=== PATIENT | male | born 1940 | race Caucasian/White ===

== ENCOUNTER 2016-12-22 18:07 | Emergency (ER) | payer MEDICARE ==
[2016-12-22 18:28] VITALS: BP 168/96; PULSE 88; RESP 20; TEMP 98.4
[2016-12-22] MEDS ORDERED: DIPH,PERTUS(ACELL)TETVAC-LF 0.5 ML VIAL IM ONE (18:32)
--- NOTE | 2016-12-22 18:38 | ED ---
Wound/Laceration HPI - General Chief Complaint: Wound/Laceration Stated Complaint: Finger Laceration Time Seen by Provider: 12/22/16 18:30 Source: patient, RN notes reviewed Mode of arrival: ambulatory Limitations: no limitations - History of Present Illness Initial Comments: 76-year-old male presents to the emergency Department chief complaint of left finger laceration. Patient states he cut it on a table saw today. Patient states she's having a burning type pain. Patient states it is minor. Patient denies any other injury from the incident. Patient states that he has never had anything like this before. Patient denies any fever chills cough cold runny nose with this. Patient states he was concerned due to his symptoms so he thought that he should be evaluated.Patient denies any recent fever, chills, shortness of breath, chest pain, back pain, abdominal pain, nausea vomiting, numbness or tingling, dysuria or hematuria, constipation or diarrhea, headaches or visual changes, or any other current symptoms. - Related Data Previous Rx's Medication Instructions Recorded Cephalexin [Keflex] 500 mg PO Q6HR #40 cap 12/22/16 Allergies Allergy/AdvReac Type Severity Reaction Status Date / Time No Known Allergies Allergy Verified 12/22/16 18:28 Review of Systems ROS Statement: Those systems with pertinent positive or pertinent negative responses have been documented in the HPI. ROS Other: All systems not noted in ROS Statement are negative. Past Medical History Past Medical History: No Reported History History of Any Multi-Drug Resistant Organisms: None Reported Past Surgical History: Orthopedic Surgery Past Psychological History: No Psychological Hx Reported Smoking Status: Never smoker Past Alcohol Use History: Occasional Past Drug Use History: None Reported General Exam - General Exam Comments Initial Comments: General: The patient is awake and alert, in no distress, and does not appear acutely ill. Neck: The neck is supple, there is no tenderness. Cardiovascular: There is a regular rate and rhythm. No murmur, rub or gallop is appreciated. Respiratory: Lungs are clear to auscultation, respirations are non-labored, breath sounds are equal. No wheezes, stridor, rales, or rhonchi. Musculoskeletal: sensation intact with 2+ pulses at the left upper extremity. Full range of motion of the left finger. Patient does appear to have 2 laceration lacerations. Less than 2 capillary refill. Neurological: CN II-XII intact, There are no obvious motor or sensory deficits. Coordination appears grossly intact. Speech is normal. Skin: Skin is warm and dry and no rashes or lesions are noted. Psychiatric: Normal mood and affect. Limitations: no limitations Course Vital Signs 12/22/16 18:25 Temperature 98.4 F Pulse Rate 88 Respiratory 20 Rate Blood Pressure 168/96 O2 Sat by Pulse 97 Oximetry Procedures - Procedures Initial comment: The skin was anesthetized with 1% lidocaine. The laceration was then cleansed with Betadine and irrigated with normal saline. The wound was inspected. No foreign body was noted in the wound. A total of 4 skin sutures were placed utilizing 5-0 nylon to a 4 cm laceration to the left index finger The skin was anesthetized with 1% lidocaine. The laceration was then cleansed with Betadine and irrigated with normal saline. The wound was inspected, and there was no evidence of injury to deep structures. No foreign body was noted in the wound. A total of 2 skin sutures were placed utilizing I will nylon to a 2 cm laceration to the PIP joint of the left index finger Medical Decision Making - Medical Decision Making 76-year-old presents emergency Department chief complaint of left index finger laceration.at this time patient's x-ray is reviewed. We did discuss that this has a high risk of infection. We discussed we'll plan and actually did discuss close follow-up with orthopedic we did discuss is an open fracture. Patient was loosely approximated due to risk of infection. Patient family are in agreement plan all questions have been answered. Disposition Clinical Impression: Laceration of left index finger, Open fracture of finger of left hand Disposition: HOME SELF-CARE Condition: Stable Instructions: Laceration (ED), Care For Your Stitches (ED) Additional Instructions: Please use medication as discussed. Please follow up with family doctor if symptoms have not improved over the next two days. Please return to the emergency room if your symptoms increase or worsen or for any other concerns. Follow-up with hand surgeon in the morning. Please return to the emergency room in 8-10 days to have sutures removed. Please leave wound covered for the first 24-48 hours and then leave open to air after that time. Please use clean soap and water to clean the suture area to prevent scabbing over the top of your sutures. Please watch for any signs of infection which may include but not limited to increased pain, swelling, redness , fever or chills. Please return to the emergency room if any signs of infection do occur. Please return to the emergency room for any other concerns or complications. Prescriptions: Cephalexin [Keflex] 500 mg PO Q6HR #40 cap Referrals: Reji Lopez DO [Doctor of Osteopathic Medicine] - 1-2 days Time of Disposition: 19:39
--- NOTE | 2016-12-22 19:03 | XR ---
Second digit left hand HISTORY: Trauma and pain 3 views of the second digit of the left hand Posttraumatic changes are noted to the distal phalanx of the second digit of the left hand, there is fragmentation present, soft tissue metallic densities are present with soft tissue injury. Posttrauma tic change extends into the distal interphalangeal joint. Alignment is maintained, there is soft tiss ue swelling. IMPRESSION: Findings compatible with patient's history of trauma.
== END 2016-12-22 20:14 | disposition home or self-care (01) ==
LOC: EC 18:07
DX: S62.631B Displaced fracture of distal phalanx of left index finger, initial encounter for open fracture (principal); Z23 Encounter for immunization; W27.0XXA Contact with workbench tool, initial encounter
CPT/HCPCS: 12002; 90471; 90715; 99283

== ENCOUNTER 2023-02-12 21:56 | Emergency (ER) | payer MEDICARE ==
[2023-02-12] MEDS ORDERED: PANTOPRAZOLE 40 MG/10 ML VIAL IVP STA (22:18)
[2023-02-12] MEDS ORDERED: ONDANSETRON 4 MG/2 ML VIAL IVP STA (22:18)
[2023-02-12] MEDS ORDERED: SODIUM CHLORIDE 0.9% 1,000 ML IV STA (22:18)
--- NOTE | 2023-02-12 22:19 | ED ---
Chest Pain HPI - General Chief Complaint: Chest Pain Stated Complaint: chest pain Time Seen by Provider: 02/12/23 22:17 Source: patient, RN notes reviewed, old records reviewed Mode of arrival: ambulatory Limitations: no limitations - History of Present Illness Initial Comments: This is a 82-year-old male DF today. Presents today for evaluation regards to chest pain. 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 Patient occasionally gets twinges of chest pain was at a family dinner today he noticed to have chest pain during dinner and family states he nearly passed out, he did not loose tone but was difficult to get this respond. They kept having to say his name, when he didn't come out of it was little clammy a little pale but his symptoms are resolved on arrival to the emergency department MD Complaint: chest pain, other (Near syncope) -: hour(s) Onset: during rest Pain Location: substernal Pain Radiation: none Severity: moderate Severity scale (1-10): 5 Quality: tightness, heaviness Consistency: constant, now resolved Improves With: nothing Worsens With: nothing Other Symptoms: syncope, palpitations Treatments Prior to Arrival: none - Related Data Home Medications Medication Instructions Recorded Confirmed Aspirin EC [Ecotrin Low Dose] 81 mg PO DAILY 02/12/23 02/12/23 Clopidogrel [Plavix] 75 mg PO DAILY 02/12/23 02/12/23 Metoprolol Succinate (ER) [Toprol 25 mg PO DAILY 02/12/23 02/12/23 Xl] Rosuvastatin [Crestor] 10 mg PO DAILY 02/12/23 02/12/23 Trospium Chloride [Sanctura XR] 60 mg PO DAILY 02/12/23 02/12/23 Allergies Allergy/AdvReac Type Severity Reaction Status Date / Time No Known Allergies Allergy Verified 02/12/23 23:37 Review of Systems ROS Statement: Those systems with pertinent positive or pertinent negative responses have been documented in the HPI. ROS Other: All systems not noted in ROS Statement are negative. EKG Findings - EKG Comments: EKG Findings:: It is sinus bradycardia 57 MI 127 QRS 168 QTc 479 Past Medical History Past Medical History: Unable to Obtain History of Any Multi-Drug Resistant Organisms: None Reported Past Surgical History: Heart Catheterization With Stent, Orthopedic Surgery Additional Past Surgical History / Comment(s): CABG Past Psychological History: No Psychological Hx Reported Smoking Status: Former smoker Past Alcohol Use History: Occasional Past Drug Use History: None Reported General Exam Limitations: no limitations General appearance: alert, in no apparent distress, anxious Head exam: Present: atraumatic, normocephalic, normal inspection Eye exam: Present: normal appearance, PERRL, EOMI. Absent: scleral icterus, conjunctival injection, periorbital swelling ENT exam: Present: normal exam, mucous membranes moist Neck exam: Present: normal inspection. Absent: tenderness, meningismus, lymphadenopathy Respiratory exam: Present: normal lung sounds bilaterally. Absent: respiratory distress, wheezes, rales, rhonchi, stridor Cardiovascular Exam: Present: regular rate, normal rhythm, normal heart sounds. Absent: systolic murmur, diastolic murmur, rubs, gallop, clicks GI/Abdominal exam: Present: soft, normal bowel sounds. Absent: distended, tenderness, guarding, rebound, rigid Extremities exam: Present: normal inspection, full ROM, normal capillary refill. Absent: tenderness, pedal edema, joint swelling, calf tenderness Back exam: Present: normal inspection Neurological exam: Present: alert, oriented X3, CN II-XII intact Psychiatric exam: Present: normal affect, normal mood Skin exam: Present: warm, dry, intact, normal color. Absent: rash Course Vital Signs 02/12/23 02/12/23 02/13/23 22:07 22:29 00:13 Temperature 97.7 F Pulse Rate 67 57 L 64 Respiratory 18 16 18 Rate Blood Pressure 144/78 137/75 138/79 O2 Sat by Pulse 99 100 95 Oximetry 02/13/23 02:00 Temperature 98.1 F Pulse Rate 65 Respiratory 18 Rate Blood Pressure 135/77 O2 Sat by Pulse 98 Oximetry - Reevaluation(s) Reevaluation #1: 02/12/23 23:16 Medical records reviewed Reevaluation #2: 02/13/23 02:42 Patient's chest pain remains resolved Reevaluation #3: 02/13/23 02:42 Patient informed results and questions answered Reevaluation #4: 02/12/23 22:50 Was pt. sent in by a medical professional or institution (, PA, REGIONAL TRAINER, urgent care, hospital, or fdc...) When possible be specific @ -no Did you speak to anyone other than the patient for history (EMS, parent, family, police, friend...)? What history was obtained from this source @ -no Did you review nursing and triage notes (agree or disagree)? Why? @ -agree Are old charts reviewed (outside hosp., previous admission, EMS record, old EKG, old radiological studies, urgent care reports/EKG's, fdc records)? Report findings @ -yes Differential Diagnosis (chest pain, altered mental status, abdominal pain women, abdominal pain men, vaginal bleeding, weakness, fever, dyspnea, syncope, headache, dizziness, GI bleed, back pain, seizure, CVA, palpatations, mental health, musculoskeletal)? @ -prior EKG interpreted by me (3pts min.). @ -yes X-rays interpreted by me (1pt min.). @ -no CT interpreted by me (1pt min.). @ -no U/S interpreted by me (1pt. min.). @ -no What testing was considered but not performed or refused? (CT, X-rays, U/S, labs)? Why? @ -none What meds were considered but not given or refused? Why? @ -none Did you discuss the management of the patient with other professionals (professionals i.e. , PA, REGIONAL TRAINER, lab, RT, psych nurse, rn social services, landscape horticulture instructor, teacher, toxics program officer, rn case management)? Give summary @ -no Was smoking cessation discussed for >3mins.? @ -no Was critical care preformed (if so, how long)? @ -no Were there social determinants of health that impacted care today? How? (Homelessness, low income, unemployed, alcoholism, drug addiction, transportation, low edu. Level, literacy, decrease access to med. care, custodial, rehab)? @ -none Was there de-escalation of care discussed even if they declined (Discuss DNR or withdrawal of care, Hospice)? DNR status @ -no What co-morbidities impacted this encounter? (DM, HTN, Smoking, COPD, CAD, Cancer, CVA, ARF, Chemo, Hep., AIDS, mental health diagnosis, sleep apnea, morbid obesity)? @ -none Was patient admitted / discharged? Hospital course, mention meds given and route, prescriptions, significant lab abnormalities, going to OR and other pertinent info. @ - 82 male to the emergency department for evaluation. Patient has history of coronary artery disease and coming in for evaluation of chest pain and near syncopal event prior to arrival. Symptoms resolved upon arrival feels well throughout ER stay can be discharged home Discharge Undiagnosed new problem with uncertain prognosis? @ -no Drug Therapy requiring intensive monitoring for toxicity (Heparin, Nitro, Insulin, Cardizem)? @ -no Were any procedures done? @ -no Diagnosis/symptom? @ -Chest pain Acute, or Chronic, or Acute on Chronic? @ -Acute Uncomplicated (without systemic symptoms) or Complicated (systemic symptoms)? @ -Complicated Side effects of treatment? @ -no Exacerbation, Progression, or Severe Exacerbation? @ -exacerbation Poses a threat to life or bodily function? How? (Chest pain, USA, PA, pneumonia, PE, COPD, DKA, ARF, appy, cholecystitis, CVA, Diverticulitis, Homicidal, Suicidal, threat to staff... and all critical care pts) @ -yes Reevaluation #5: 02/13/23 02:42 Differential Chest Pain: Stable Angina, Unstable Angina, STEMI, NSTEMI Aortic Dissection, Pneumothorax, Musculoskeletal, Esophageal Spasm GERD, Cholecystitis, Pancreatitis, Zoster, this is not meant to be an all-inclusive list. Differential Syncope: Valvular disease, hypertrophic cardiomyopathy, pulmonary embolism, tamponade, tachycardia, bradycardia, PA, hypovolemia, hemorrhage, dissection, anemia, intracranial hemorrhage, seizure, hypoglycemia, carbon monoxide poisoning, this is not meant to be an all-inclusive list. Chest Pain MDM - MDM 82 male to the emergency department for evaluation. Patient has history of coronary artery disease and coming in for evaluation of chest pain and near syncopal event prior to arrival. Patient was troponin negative 2 here in the ER feels improved, never had chest pain in the emergency prior. Symptoms resolved upon arrival feels well throughout ER stay can be discharged home Disposition Clinical Impression: Atypical chest pain, Chest pain, Near syncope Disposition: HOME SELF-CARE Condition: Good Instructions (If sedation given, give patient instructions): Chest Pain (ED) Is patient prescribed a controlled substance at d/c from ED?: No Referrals: None,Stated [REFERRING] - 1-2 days Time of Disposition: 02:30
[2023-02-12 22:40] LABS: Basophils % (A) 0 %; Eosinophils # (A) 0.2 k/uL (0-0.7); Eosinophils % (A) 2 %; HCT 42.6 % (39.0-53.0); HGB 14.5 gm/dL (13.0-17.5); Lymphocytes % (A) 28 %; MCH 32.6 pg (25.0-35.0); MCHC 34.1 g/dL (31.0-37.0); MCV 95.6 fL (80.0-100.0); Mean Platelet Volume 7.9; Monocytes # (A) 0.6 k/uL (0-1.0); Monocytes % (A) 6 %; Neutrophils # (A) 6.7 k/uL (1.3-7.7); Neutrophils % (A) 63 %; Platelet Count 211 k/uL (150-450); RBC 4.45 m/uL (4.30-5.90); RDW 13.3 % (11.5-15.5); WBC 10.7 k/uL (3.8-10.6)
[2023-02-12 22:50] LABS: ALT 55 U/L (4-49); AST 105 U/L (17-59); African American GFR (CKD) 58 (>60 ml/min/1.73 sqM); Albumin 4.3 g/dL (3.5-5.0); Alkaline Phosphatase 64 U/L (38-126); Amylase 93 U/L (30-110); Anion Gap 8 mmol/L; Blood Urea Nitrogen 20 mg/dL (9-20); Calcium 9.6 mg/dL (8.4-10.2); Carbon Dioxide 22 mmol/L (22-30); Chloride 108 mmol/L (98-107); Glucose 113 mg/dL (74-99); Lipase 245 U/L (23-300); Non-African American GFR(CKD) 50 (>60 ml/min/1.73 sqM); Potassium 4.1 mmol/L (3.5-5.1); Sodium 138 mmol/L (137-145); Total Bilirubin 0.7 mg/dL (0.2-1.3); Total Protein 8.2 g/dL (6.3-8.2)
[2023-02-13 00:22] VITALS: RESP 18
[2023-02-13 02:46] VITALS: BP 135/77; PULSE 65; TEMP 98.1
== END 2023-02-13 02:48 | disposition home or self-care (01) ==
LOC: EC 21:56
DX: R07.89 Other chest pain (principal); R55 Syncope and collapse; Z87.891 Personal history of nicotine dependence; Z95.1 Presence of aortocoronary bypass graft; Z79.82 Long term (current) use of aspirin
CPT/HCPCS: 36415 ×2; 93005; 80053; 82150; 83690; 84484 ×2; 85025; 99285; 96374; 96375; 96361; J2405; C9113

== ENCOUNTER 2024-01-20 11:00 | Inpatient (IN) | payer MEDICARE ==
[~2024-01-20 11:00] MED LIST: ASPIRIN 81 MG ONE
[2024-01-20] MEDS ORDERED: SODIUM CHLORIDE 0.9% 1,000 ML BAG ONE ×2 (15:30→23:59)
[2024-01-20] MEDS ORDERED: MORPHINE SULFATE 4 MG/ML SYRINGE ONE (16:16)
[2024-01-20] MEDS ORDERED: ONDANSETRON 4 MG/2 ML VIAL ONE (16:23)
[2024-01-21] MEDS ORDERED: CLOPIDOGREL 75 MG TAB ONE (08:44)
[2024-01-21] MEDS ORDERED: METOPROLOL TARTRATE 25 MG TAB ONE ×2 (08:56→20:32)
[2024-01-21] MEDS: IOPAMIDOL-370 200ML BTL INJ ONE (13:08)
[2024-01-21] MEDS ORDERED: DAPAGLIFLOZIN PROPANEDIOL 10 MG TABLET ONE (15:20)
[2024-01-21] MEDS ORDERED: ACETAMINOPHEN TAB 325 MG TAB ONE (18:26)
[2024-01-21] MEDS ORDERED: cefTRIAXone 2 GM VIAL ONE (20:32)
[2024-01-21] MEDS ORDERED: SODIUM CHLORIDE 0.9% 50 ML BAG ONE (22:00)
[2024-01-22] MEDS ORDERED: METOPROLOL TARTRATE 25 MG TAB ONE ×2 (09:21→16:01)
[2024-01-22] MEDS ORDERED: ASPIRIN 81 MG ONE (09:21)
[2024-01-22] MEDS ORDERED: CLOPIDOGREL 75 MG TAB ONE (09:21)
[2024-01-22] MEDS ORDERED: DAPAGLIFLOZIN PROPANEDIOL 10 MG TABLET ONE (09:22)
[2024-01-22] MEDS ORDERED: ATORVASTATIN 20 MG TAB ONE (11:01)
[2024-01-22] MEDS ORDERED: IOPAMIDOL CONTRAST (ORAL USE) VIAL PO ONE ×2 (14:21→16:41)
[2024-01-22] MEDS ORDERED: MORPHINE SULFATE 4 MG/ML SYRINGE ONE (15:36)
[2024-01-22] MEDS ORDERED: PIPERACILLIN-TAZOBACTAM 3.375 GM VIAL ONE (16:01)
[2024-01-22] MEDS ORDERED: METOPROLOL SUCCINATE (ER) 25 MG TAB.ER.24H PO ONE (21:11)
[2024-01-22] MEDS ORDERED: TROSPIUM CHLORIDE 20 MG TABLET ONE (23:59)
[2024-01-22] MEDS ORDERED: SODIUM CHLORIDE 0.9% 100 ML BAG IV ONE (23:59)
[2024-01-22] MEDS ORDERED: SACUBITRIL/VALSARTAN 24 MG-26 MG TABLET PO ONE (23:59)
[2024-01-23] MEDS ORDERED: PIPERACILLIN-TAZOBACTAM 3.375 GM VIAL ONE ×3 (01:17→16:25)
[2024-01-23] MEDS ORDERED: MORPHINE SULFATE 4 MG/ML SYRINGE ONE (05:01)
[2024-01-23] MEDS ORDERED: ASPIRIN 81 MG ONE (08:53)
[2024-01-23] MEDS ORDERED: METOPROLOL TARTRATE 25 MG TAB ONE ×2 (08:53→16:25)
[2024-01-23] MEDS ORDERED: ATORVASTATIN 20 MG TAB ONE (08:53)
[2024-01-23] MEDS ORDERED: DAPAGLIFLOZIN PROPANEDIOL 10 MG TABLET ONE (13:55)
[2024-01-23] MEDS ORDERED: SACUBITRIL/VALSARTAN 24 MG-26 MG TABLET PO ONE (14:37)
--- NOTE | 2024-02-24 09:23 | XR ---
Site ID synapse default Adam Davis ID [id number] Age/Gender: 83Y, M Order # N/A Procedure CXR 2V Date 01/20/2024 6:08:23 AM EXAMINATION TYPE: Chest X-ray 2 Views DATE OF EXAM: 02/06/2024 11:56 PM COMPARISON: None, please note PACS Production downtime occurred during the radiologist interpretation of these images with limited priors/reports. TECHNIQUE: Chest X-ray 2 Views Frontal and lateral views of the chest. CLINICAL INDICATION: Male, 83 year old with history of sternal chest pain; FINDINGS: Lungs/Pleura: No pneumothorax. Trace right pleural effusion. Patchy left basilar airspace opacities. Pulmonary vascularity: Unremarkable. Heart/mediastinum: Cardiomediastinal silhouette is unremarkable. Musculoskeletal: No acute osseous pathology. Multilevel degenerative disc disease. IMPRESSION: 1. Patchy left basilar airspace opacities which may represent atelectasis versus infiltrate in the a ppropriate clinical setting. 2. Trace right pleural effusion.
== END 2024-01-23 20:00 | disposition short-term general hospital (02) | DRG 280 ==
LOC: 6NMEDSUR 11:00
PROVIDERS: ADMIT Internal Medicine; ATTEND Internal Medicine
PROC: B2011ZZ Plain Radiography of Multiple Coronary Arteries using Low Osmolar Contrast (ICD-10-PCS; principal; 2024-01-23)
PROC: 4A023N7 Measurement of Cardiac Sampling and Pressure, Left Heart, Percutaneous Approach (ICD-10-PCS; principal; 2024-01-23)
DX: I21.3 ST elevation (STEMI) myocardial infarction of unspecified site (principal); I50.33 Acute on chronic diastolic (congestive) heart failure; K81.0 Acute cholecystitis; I11.0 Hypertensive heart disease with heart failure; I35.0 Nonrheumatic aortic (valve) stenosis; D72.829 Elevated white blood cell count, unspecified; I95.9 Hypotension, unspecified; E78.5 Hyperlipidemia, unspecified; Z95.1 Presence of aortocoronary bypass graft
CPT/HCPCS: 80053; 82150; 83735; 84484; 93005